=== PATIENT | female | born 1960 | race Caucasian/White ===

== ENCOUNTER 2024-09-29 12:58 | Outpatient (CLI) | payer MEDICARE, OTHER, SELFPAY ==
--- NOTE | 2024-09-29 14:20 | P.ANES_ITS ---
Anesthesia Charges Start Date/Time Anesthesia Start Date: 09/29/24 Anesthesia Start Time: 14:09 Stop Date/Time Anesthesia Stop Date: 09/29/24 Anesthesia Stop Time: 14:30 Coding CPT Codes CPT Codes: ANES UPR GI NDSC PX NOS - [id number] ([id number]) P3 - PATIENT W/SEVERE SYS DISEASE, QK - ROLL UP HELPER 2-4 CNCRNT ANES PROC, QX - SLEEVE SETTER SAFETY STITCH SVC W/ MD MED DIRECTION
--- NOTE | 2024-09-29 14:20 | W.ANESCHARGE ---
Anesthesia Charges Start Date/Time Anesthesia Start Date: 09/29/24 Anesthesia Start Time: 14:09 Stop Date/Time Anesthesia Stop Date: 09/29/24 Anesthesia Stop Time: 14:30 Coding CPT Codes CPT Codes: ANES UPR GI NDSC PX NOS - [id number] ([id number]) P3 - PATIENT W/SEVERE SYS DISEASE, QK - PROJECT CONTROL OFFICER 2-4 CNCRNT ANES PROC, QX - PICK UP ATTENDANT SVC W/ MD MED DIRECTION
--- NOTE | 2024-09-29 14:33 | P.ANES_ITS ---
Anesthesia Charges Start Date/Time Anesthesia Start Date: 09/29/24 Anesthesia Start Time: 14:09 Stop Date/Time Anesthesia Stop Date: 09/29/24 Anesthesia Stop Time: 14:30 Coding CPT Codes CPT Codes: ANES UPR GI NDSC PX NOS - 14417 ([id number]) P2 - PATIENT W/MILD SYST DISEASE, QX - DIRECTOR OF SUSTAINABILITY SVC W/ MD MED DIRECTION, QK - LIP CUTTER 2-4 CNCRNT ANES PROC
--- NOTE | 2024-09-29 14:33 | W.ANESCHARGE ---
Anesthesia Charges Start Date/Time Anesthesia Start Date: 09/29/24 Anesthesia Start Time: 14:09 Stop Date/Time Anesthesia Stop Date: 09/29/24 Anesthesia Stop Time: 14:30 Coding CPT Codes CPT Codes: ANES UPR GI NDSC PX NOS - [id number] ([id number]) P2 - PATIENT W/MILD SYST DISEASE, QX - PROFESSIONAL SOCCER PLAYER SVC W/ MD MED DIRECTION, QK - STAVE JOINTER 2-4 CNCRNT ANES PROC
== END 2024-09-29 12:59 | disposition home or self-care (01) ==
PROVIDERS: PCP Internal Medicine; Visit Provider Internal Medicine Gastroenterology
DX: R10.13 Epigastric pain (principal); R93.3 Abnormal findings on diagnostic imaging of other parts of digestive tract; R63.0 Anorexia; K31.89 Other diseases of stomach and duodenum
CPT/HCPCS: 00731; 43239; 88305; J2704; J3490

== ENCOUNTER 2024-10-13 12:33 | Outpatient (CLI) | payer MEDICARE, SELFPAY ==
--- NOTE | 2024-10-13 14:19 | P.ANES_ITS ---
Anesthesia Charges Start Date/Time Anesthesia Start Date: 10/13/24 Anesthesia Start Time: 13:49 Stop Date/Time Anesthesia Stop Date: 10/13/24 Anesthesia Stop Time: 14:16 Coding CPT Codes CPT Codes: KENYON LWR INTST NDSC NOS - [id number] ([id number]) P2 - PATIENT W/MILD SYST DISEASE, QK - KILN TENDER 2-4 CNCRNT ANES PROC, QX - DRAW FRAME RUNNER SVC W/ MD MED DIRECTION
--- NOTE | 2024-10-13 14:19 | W.ANESCHARGE ---
Anesthesia Charges Start Date/Time Anesthesia Start Date: 10/13/24 Anesthesia Start Time: 13:49 Stop Date/Time Anesthesia Stop Date: 10/13/24 Anesthesia Stop Time: 14:16 Coding CPT Codes CPT Codes: KENYON LWR INTST NDSC NOS - [id number] ([id number]) P2 - PATIENT W/MILD SYST DISEASE, QK - ANIMAL CARE WORKER 2-4 CNCRNT ANES PROC, QX - FUND ACCOUNTING MANAGER SVC W/ MD MED DIRECTION
--- NOTE | 2024-10-16 08:09 | P.ANES_ITS ---
Anesthesia Charges Start Date/Time Anesthesia Start Date: 10/13/24 Anesthesia Start Time: 13:49 Stop Date/Time Anesthesia Stop Date: 10/13/24 Anesthesia Stop Time: 14:16 Coding CPT Codes CPT Codes: KENYON LWR INTST NDSC NOS - [id number] ([id number]) P2 - PATIENT W/MILD SYST DISEASE, QK - SOFTBALL UMPIRE 2-4 CNCRNT ANES PROC, QX - DESIGN VERIFICATION ENGINEER SVC W/ MD MED DIRECTION
--- NOTE | 2024-10-16 08:09 | W.ANESCHARGE ---
Anesthesia Charges Start Date/Time Anesthesia Start Date: 10/13/24 Anesthesia Start Time: 13:49 Stop Date/Time Anesthesia Stop Date: 10/13/24 Anesthesia Stop Time: 14:16 Coding CPT Codes CPT Codes: KENYON LWR INTST NDSC NOS - [id number] ([id number]) P2 - PATIENT W/MILD SYST DISEASE, QK - ORACLE ENGINEER 2-4 CNCRNT ANES PROC, QX - ENTRY LEVEL CIVIL ENGINEER SVC W/ MD MED DIRECTION
== END 2024-10-13 12:34 | disposition home or self-care (01) ==
PROVIDERS: PCP Internal Medicine; Visit Provider Internal Medicine Gastroenterology
DX: Z12.11 Encounter for screening for malignant neoplasm of colon (principal)
CPT/HCPCS: 00811; 00812; 45380; 88305; J2704